=== PATIENT | male | born 1970 | race Caucasian/White ===

== ENCOUNTER → 2020-12-30 | Outpatient (CLI) | payer OTHER ==
--- NOTE | 2020-12-30 11:26 | RAD ---
EXAM: ULTRASOUND ABDOMEN LIMITED CLINICAL HISTORY: Reason: ELEVATED LFTS / Spl. Instructions: / History: COMPARISON: None available. TECHNIQUE: Limited ultrasound examination of the right upper quadrant of the abdomen was performed. FINDINGS: The pancreas is mostly obscured by overlying bowel gas.. Liver: 13 cm in length. The hepatic margin is smooth and the hepatic echogenicity is normal. There are no focal liver lesions. Flow seen within the portal veins. Biliary: Echogenic material dependently within the gallbladder likely sludge and small gallstones. N o wall thickening or pericholecystic fluid. There is no pain with direct transducer pressure over th e gallbladder. Common bile duct measures 0.3 cm. Right Kidney: 10.1 cm in bipolar length. Normal renal cortical echotexture and thickness. No focal re nal lesion, shadowing renal calculus or hydronephrosis. Visualized portions of the abdominal aorta and inferior vena cava are unremarkable. There is no free fluid in the subhepatic space. IMPRESSION: 1. Sludge and small gallstones are seen within the gallbladder. No sonographic evidence for acute ch olecystitis. Electronically signed by: Parker Vance MD (12/30/2020 11:24 AM) [facility]
== END ==
LOC: US 08:54
PROVIDERS: ATTEND Internal Medicine Gastroenterology
DX: K80.20 Calculus of gallbladder without cholecystitis without obstruction (principal)
CPT/HCPCS: 76705